=== PATIENT | male | born 1980 | race Caucasian/White ===

== ENCOUNTER → 2021-12-15 08:38 | Outpatient (REF) | payer MEDICAID, SELFPAY ==
--- NOTE | 2021-12-15 08:43 | CA_ITS ---
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 Normal LV systolic function with mild LVH and moderate asymmetric septal hypertrophy with impaired relaxation filling pattern 2. Normal cardiac valvular Doppler 3. No gross pericardial effusion Findings Left Ventricle Normal left ventricular size and systolic function. There is mildly increased left ventricular wall thickness. The visually estimated ejection fraction is between 55-60%. There is no dynamic left ventricular outflow tract obstruction. Spectral Doppler is indicative of an impaired relaxation filling pattern. E/E prime ratio is <8, consistent with normal filling pressures. There is moderate septal asymmetric hypertrophy. Right Ventricle Normal right ventricular cavity size and systolic function. Atria Both atria are normal in size. There is no evidence of interatrial shunt. Aortic Valve Normal aortic valve structure and function. There is mild calcification of the aortic valve. There is no aortic valve stenosis. There is no aortic valve regurgitation. Mitral Valve Normal mitral valve structure and function. There is trace mitral valve regurgitation. There is no mitral valve stenosis. Pulmonic Valve The pulmonic valve was not well visualized. Tricuspid Valve Likely normal tricuspid valve structure and function. Tricuspid regurgitation envelope is inadequate for calculation of right ventricular systolic pressure. Great Vessels All visible segments of the aorta are normal in size. The pulmonary artery was not well visualized. Venous The inferior vena cava is normal in size and collapses greater than 50% with inspiration. Pericardium/Pleural There is no evidence of pericardial effusion. Prior Study Comparison No prior study available for comparison. Measurements 2D Linear Measurements IVSd: 1.31 0.6-0.9/0.6-1.0 cm LVIDd: 4.70 3.9-5.3/4.2-5.9 cm LVIDd Index: 2.44 2.4-3.2/2.2-3.1 cm/m2 LVIDs: 3.32 2.0-3.6 cm LVPWd: 1.21 0.7-1.1 cm LA Diam: 2.70 2.7-3.8/3.0-4.0 cm LAIDs Index: 1.40 1.5-2.3 cm/m2 LV Mass: 283.45 67-162/88-224 g LV Mass Index: 146.86 43-95/49-115 g/m2 LVOT Diam: 2.20 3.0+(-)1.3 cm 2D Systolic Function EF 4C: 56.30 >55% EF 2C: 61.00 >55% EF BiP: 57.80 >55% Mitral Valve MV Pk E: 0.55 MV PK A: 0.60 MV Decel Time: 203.00 E/A: 0.90 E'Lateral: 15.90 E'Medial: 7.18 E/E' Med: 7.70 E/E' Lat: 3.50 PHT: 60.00 MVA PHT: 3.67 Decel [place]: 2.72 Aortic Valve AoV Pk Jude: 1.69 AoV Mn Jude: 1.16 AoV VTI: 0.27 AoV Pk Grad: 11.00 Aov Mn Grad: 6.00 RIVERA Cont.VTI: 2.83 LVOT LVOT Pk Jude: 1.08 LVOT Mn Jude: 0.72 LVOT VTI: 0.20 LVOT Pk Grad: 5.00 LVOT Mn Grad: 2.00 LVOT Diam: 2.20 LVOT Area: 3.80 Diastolic Function MV Pk E: 0.55 MV Pk A: 0.60 E/A: 0.90 E'Medial: 7.18 E/E' Med: 7.70 E' Laterial: 15.90 E/E' Lat: 3.50 Right Ventricle TAPSE (mm): 20.70 TVS' Jude: 10.00 Tricuspid Valve RA Press: 3.00 Great Vessels Aorta Sinus of Valsalva: 4.30 2.0-3.[address] [place]: 3.00 1.7-3.4 cm Ao Asc: 3.40 2.1-3.4 cm Ao Arch: 2.90 Updated in Other Vendor System with Status of Final Selvin Bhagat MD electronically signed on 12/15/2021 4:15:30 PM with status of Final
== END ==
LOC: HO.CARD 08:38
PROVIDERS: Visit Provider Internal Medicine
DX: I10 Essential (primary) hypertension (principal); R94.31 Abnormal electrocardiogram [ECG] [EKG]
CPT/HCPCS: 93306

== ENCOUNTER 2022-03-29 11:18 | Emergency (ER) | payer MEDICAID, SELFPAY ==
[2022-03-29 12:22] VITALS: BP 155/93; PULSE 106; RESP 18; TEMP 36.4; O2SAT 97; BMI 27.5
--- NOTE | 2022-03-29 12:24 | ED_ITS ---
HPI - General Adult General Chief complaint: Back Pain/Injury Stated complaint: Back Injury 03/28/22 Source: patient Mode of arrival: ambulatory History of Present Illness HPI narrative: 41-year-old male presents with complaints of lower back pain that is nonradiating into either lower extremity and denies any bowel or bladder dysfunction denies any groin numbness or any history of fever, chills, IVDA. Patient states that he was picking up his garbage and twisted says that he can feel a discomfort while he is walking. Related Data Previous Rx's Medication Instructions Recorded ketorolac 10 mg tablet 10 mg PO Q6H PRN pain 5 days #20 03/29/22 tabs Allergies Allergy/AdvReac Type Severity Reaction Status Date / Time No Known Allergies Allergy Unverified 01/16/20 16:27 Review of Systems Review of Systems: Pertinent positives and negatives as stated in HPI 10 point review of systems is otherwise negative. PMFSH Past Medical History Source: nursing notes reviewed Physical Exam ED Vital Signs: VITAL SIGNS: Reviewed. GENERAL: Well developed, well nourished, in no acute distress. HEAD: Normocephalic/atraumatic EYES: PERRLA, EOMI EARS: Ext canals without abnormality OROPHARYNX: no oral lesions noted, posterior pharynx clear LUNGS: Normal breath sounds. CARDIOVASCULAR: Regular rate and rhythm without noted murmurs ABDOMEN: Soft, non-tender, non-distended with bowel sounds. BACK: No CVA tenderness, no midline vertebral tenderness on palpation, straight leg test within normal limits MUSCULOSKELETAL: No tenderness, deformities, or effusions noted on gross inspection. EXTREMITIES: No cyanosis, clubbing or edema. SKIN: Inspection of the skin reveals no rashes NEUROLOGIC: Alert and oriented x 4. Strength and sensation to light touch were grossly intact x 4. Course Course Course Narrative: 41-year-old male with history and clinical presentation consistent with back strain and no evidence to suggest infection, cauda equina. Patient given combination analgesics, lidocaine patch and discharged home in stable condition. Discharge Plan Discharge Clinical Impression: Lumbar back pain Patient Disposition: Home, Self-Care Instructions: Back Pain (ED) Additional Instructions: Tylenol 1000 middle every 6 hours as needed for pain control. Do exceed 4000 mg within 24 hours. Lidocaine patch, apply to area of maximal tenderness as directed on the outside packaging. Follow-up with your primary care provider next 1-2 days for re-evaluation further outpatient management. Return to the ER for worsening symptoms. Prescriptions: New ketorolac 10 mg tablet 10 mg PO Q6H PRN (Reason: pain) 5 Days Qty: 20 0RF Rx Instructions: Pt received Toradol in the ER Referrals: [facility] [Primary Care Provider] - Stand Alone Forms: Work/School Release
[2022-03-29] MEDS: Acetaminophen 325 MG TABLET 975 MG PO (12:31)
[2022-03-29] MEDS: Ketorolac Tromethamine 15 MG/ML VIAL IM (12:31)
[2022-03-29] MEDS: Lidocaine 4 % Patch ADH..PATCH 1 PATCH TRANSDERMA (12:32)
== END 2022-03-29 12:55 | disposition home or self-care (01) ==
PROVIDERS: Emergency Provider Student in an Organized Health Care Education/Training Program
DX: M54.50 Low back pain, unspecified (principal)
CPT/HCPCS: 96372; 99283; 99284; J1885

== ENCOUNTER 2022-04-04 10:12 | Outpatient (REF) | payer MEDICAID, SELFPAY ==
[2022-04-04 10:56] LABS: COVID-19 Test Positive (Negative); IDNOW Serial# 16C4AD1C
== END 2022-04-04 10:13 | disposition home or self-care (01) ==
LOC: HO.LAB 10:12
PROVIDERS: Visit Provider Internal Medicine
DX: Z20.822 Contact with and (suspected) exposure to COVID-19 (principal)
CPT/HCPCS: 87635; C9803

== ENCOUNTER 2022-07-01 11:28 | Outpatient (REF) | payer MEDICAID, SELFPAY ==
--- NOTE | ~2022-07-01 | XR_ITS ---
EXAMINATION: XR CHEST CLINICAL INFORMATION: Tender low left lateral ribs. Pain left upper quadrant abdomen. COMPARISON: None TECHNIQUE: 2 views of the chest were obtained. FINDINGS: The lungs are clear. There is no pneumothorax or pleural reaction. No airspace consolidation or groundglass opacity. The costophrenic sulci are well-defined. There is no effusion. The heart is normal in size. The hilar and mediastinal contours and visualized bony structures are unremarkable. There is no free air beneath the diaphragms. No subcutaneous emphysema. XR/XR chest 2V IMPRESSION: Unremarkable examination.
== END 2022-07-01 11:29 | disposition home or self-care (01) ==
LOC: HO.XRAY 11:28
PROVIDERS: Visit Provider Internal Medicine
DX: R07.81 Pleurodynia (principal)
CPT/HCPCS: 71046

== ENCOUNTER 2022-09-09 11:09 | Outpatient (REF) | payer MEDICAID, SELFPAY ==
--- NOTE | ~2022-09-09 | XR_ITS ---
EXAMINATION: XR LUMBOSACRAL SPINE CLINICAL INFORMATION: Chronic pain COMPARISON: None available. TECHNIQUE: Three views of the lumbosacral spine. FINDINGS: Bone alignment is normal. No fracture or dislocation. Mild degenerative spondylosis and disc space narrowing at L1-L2 and L2-L3. Disc spaces are otherwise normal. Paraspinal soft tissues are normal. XR/XR lumbar spine 2-3V IMPRESSION: Mild degenerative changes at L1-L2 and L2-L3.
== END 2022-09-09 11:10 | disposition home or self-care (01) ==
LOC: HO.XRAY 11:09
PROVIDERS: Visit Provider Internal Medicine
DX: M54.50 Low back pain, unspecified (principal)
CPT/HCPCS: 72100

== ENCOUNTER 2023-06-05 07:25 | Outpatient (REF) | payer MEDICAID, SELFPAY ==
--- NOTE | ~2023-06-05 | XR_ITS ---
Examination: Bilateral knees CLINICAL INFORMATION: Pain COMPARISON: None TECHNIQUE: AP weightbearing, bilateral lateral, sunrise views. FINDINGS: On the right there is no significant narrowing of the joint space or joint effusion. There is bipartite patella. On the left there is no significant narrowing. Joint spaces or joint effusion. There is a bipartite patella. XR/XR knee standing BI IMPRESSION: Bipartite patella bilaterally.
--- NOTE | ~2023-06-05 | XR_ITS ---
Examination: Bilateral knees CLINICAL INFORMATION: Pain COMPARISON: None TECHNIQUE: AP weightbearing, bilateral lateral, sunrise views. FINDINGS: On the right there is no significant narrowing of the joint space or joint effusion. There is bipartite patella. On the left there is no significant narrowing. Joint spaces or joint effusion. There is a bipartite patella. XR/XR knee LT 2V IMPRESSION: Bipartite patella bilaterally.
--- NOTE | ~2023-06-05 | XR_ITS ---
Examination: Bilateral knees CLINICAL INFORMATION: Pain COMPARISON: None TECHNIQUE: AP weightbearing, bilateral lateral, sunrise views. FINDINGS: On the right there is no significant narrowing of the joint space or joint effusion. There is bipartite patella. On the left there is no significant narrowing. Joint spaces or joint effusion. There is a bipartite patella. XR/XR knee RT 2V IMPRESSION: Bipartite patella bilaterally.
== END 2023-06-05 07:26 | disposition home or self-care (01) ==
LOC: HO.HOSX 07:25
PROVIDERS: Visit Provider Orthopaedic Surgery
DX: Q74.1 Congenital malformation of knee (principal); M25.561 Pain in right knee; M25.562 Pain in left knee
CPT/HCPCS: 73560; 73565; 99202

== ENCOUNTER 2023-06-05 12:17 | Outpatient (AMB) | payer MEDICAID, SELFPAY ==
--- NOTE | 2023-06-05 12:20 | A.OFFVIS_ITS ---
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 right worse than left. Patient reports that he has had ongoing pain for about 10 years. He has increased pain with walking, stairs and pivoting. He wears knee braces which help but his problems return after taking the brace off. 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 He reports pain with daily activity, worse with walking, pivoting motions, and using stairs. He says his pain improves while wearing his knee braces, but returns when the braces are removed. He says his pain has been present for ~10 years now. He found some relief of his pain from Toradol. He states he is able to play basketball and only has pain afterwards. his primary complaint is pain with stairs and right dorsal foot pain. 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 Review of Systems Const All systems reviewed & are unremarkable except as noted in HPI and below Physical Exam Const General: no acute distress, alert and awake Orientation/consciousness: patient oriented x3 HEENT Head: Yes normocephalic and Yes atraumatic Eyes EOM: EOMs intact bilaterally Resp Effort & Inspection: normal respiratory effort and able to speak in complete sentences Cardio Jugular venous distension: no JVD Skin General skin exam: turgor normal Rashes: no rashes Neuro General: patient oriented x3 Extrem Other: No effusion and mild pain tyler retropatellar palpation Full ROM Psych Appearance: grossly normal Affect: normal affect Attitude: cooperative Results Reviewed Results Reviewed: partially fused bipartite patella bilaterally Assessment & Plan Assessment & Plan (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
== END 2023-06-05 13:36 | disposition home or self-care (01) ==
PROVIDERS: Referring Provider Internal Medicine; Visit Provider Orthopaedic Surgery
DX: Q74.1 Congenital malformation of knee (principal); M25.561 Pain in right knee; M25.562 Pain in left knee
CPT/HCPCS: 99204

== ENCOUNTER 2023-08-25 12:00 | Outpatient (RCR) | payer MEDICAID, SELFPAY ==
--- NOTE | 2023-07-18 16:18 | MHC.PT.EP ---
[facility] [place] Office [place] Office [place] Office [address] Leif Richter [address] [phone] F: [phone] F: [phone] F: [phone] F: [phone] Physical Therapy Plan of Care Date of Evaluation: 07/18/23 Date of Surgery: N/A Diagnosis: bilateral knee pain (RL) Assessment: pt is a 42 y/o male presenting to physical therapy w/ referring diagnosis of bilateral knee pain. Impairments include pain, decreased range of motion, decreased strength, impaired functional mobility, impaired postural awareness, and altered ambulation mechanics. pt is a good candidate for skilled PT due to age, potential remediation of impairments, typical disease/condition progression and prognosis, comorbidities, and motivation. pt would benefit from skilled PT intervention to provide a tailored strengthening and stretching exercise program, functional training, gait training, postural re-training, neuromuscular re-education, modalities as needed for pain, equipment safety demonstration. Frequency and Duration: The patient will be seen 2x/wk for 4 wks Short Term Goals: pt will be I w/ HEP to promote self-management of condition. pt will improve B knee extensor strength by 1 MMT to promote ease in stair navigation. Air Battle Manager Goals: pt will report a statistically significant improvement in self-reported outcome measure, LEFI, to promote return to PLOF. pt will demo proper squat mechanics x5 reps w/o verbal cueing of 40-50# object to promote return to functional lifting. Treatment Plan: Modalities to reduce pain, spasms and effusion. Manual therapy to restore motion and function. Therapeutic exercise to improve strength and flexibility. Neuromuscular re-education for posture and balance. Therapeutic activities to return to functional activities of daily living. Electronically signed by: Tanisha Queen PT, DPT Please sign and return to therapist. Thank you for your referral.
--- NOTE | 2023-09-01 10:30 | MHC.PT.DC ---
[facility] [place] Office [place] Office [place] Office [address] Leif Richter [address] [facility] [phone] F: [phone] F: [phone] F: [phone] F: [phone] Physical Therapy Discharge Report Diagnosis: bilateral knee pain (RL) Date of Surgery: N/A Date of Evaluation: 07/18/23 Date of Discharge: 09/01/23 Treatments to Date: 9 Cancellations to Date: 0 No Shows to Date: 0 Discharge Status: Improved Function Independent with HEP Discharge Summary: The patient overall was reporting an improvement in bilateral knee pain. He has progressed to using his knee braces only with rigorous activity. He has full knee ROM and strength bilaterally. He reported a statistically significant improvement in his self-reported outcome measure, LEFI. He was educated on safe and proper lifting mechanics for work-related lifting. The patient is independent with his home exercise program and is discharged at this time. Electronically signed by: Tanisha Queen PT, DPT Please sign and return to therapist. Thank you for your referral.
== END 2023-09-01 10:31 | disposition home or self-care (01) ==
LOC: HO.PT 12:00
PROVIDERS: PCP Internal Medicine; Visit Provider Orthopaedic Surgery
DX: M25.561 Pain in right knee (principal); M25.562 Pain in left knee; Q74.1 Congenital malformation of knee
CPT/HCPCS: 97110; 97140; 97161; 97530